=== PATIENT | male | born 1985 | race Caucasian/White ===

== ENCOUNTER 2017-10-13 12:50 | Emergency (ER) | payer OTHER ==
[2017-10-13 13:30] VITALS: BP 136/75
--- NOTE | 2017-10-13 14:28 | UC ---
HPI Febrile Illness - HPI Summary HPI Summary: 32 YO complaints of headache and fever for 10 days. Headache is mild tenderness mostly on the top of the head. No neck pain no neck stiffness. No back pain. No sinusitis symptoms. No cough or chest congestion. No diarrhea no dysuria. Patient had a tick bites in the past. No rashes. - History of Current Complaint Chief Complaint: UCGeneralIllness Time Seen by Provider: 10/13/17 14:08 Hx Obtained From: Patient Onset/Duration: Started Weeks Ago Timing: Constant Initial Severity: Moderate Current Severity: Mild Pain Intensity: 2 Alleviating Factors: OTC Medicine Associated Signs and Symptoms: Myalgia, Night Sweats Related History: Recent Tick Bite - Allergy/Home Medications Allergies/Adverse Reactions: Allergies Allergy/AdvReac Type Severity Reaction Status Date / Time No Known Allergies Allergy Verified 10/13/17 13:25 Home Medications: Home Medications Acetaminophen [Acetaminophen Extra Strength] 1,000 mg PO Q8H PRN 10/13/17 [ History Confirmed 10/13/17] PMH/Surg Hx/FS Hx/Imm Hx Previously Healthy: Yes Other Cardiovascular History: no htn Other Respiratory History: no asthma - Surgical History Surgical History: None - Family History Known Family History: Positive: Cardiac Disease Family History: hx lacerations - Social History Occupation: Employed Full-time Alcohol Use: None Substance Use Type: None Smoking Status (MU): Former Smoker Length of Time of Smoking/Using Tobacco: Smokeless Tobacco for 6 Years When Did the Patient Quit Smoking/Using Tobacco: ~2011 Review of Systems Constitutional: Fever, Chills Skin: Negative Eyes: Negative ENT: Negative Respiratory: Negative Cardiovascular: Negative Gastrointestinal: Negative Genitourinary: Negative Motor: Negative Neurovascular: Negative Musculoskeletal: Myalgia Neurological: Headache Psychological: Negative Is Patient Immunocompromised?: No All Other Systems Reviewed And Are Negative: Yes Physical Exam Triage Information Reviewed: Yes Appearance: Ill-Appearing - midly Vital Signs: Initial Vital Signs Temp 99.4 F 10/13/17 13:22 Pulse 98 10/13/17 13:22 Resp 16 10/13/17 13:22 BP 136/75 10/13/17 13:22 Pulse Ox 99 10/13/17 13:22 Vital Signs Reviewed: Yes Eye Exam: Normal ENT: Positive: Pharynx normal, TMs normal. Negative: Pharyngeal erythema, Nasal congestion, Nasal drainage, Tonsillar swelling, Sinus tenderness Dental Exam: Normal Neck: Positive: Supple, Nontender. Negative: Nuchal Rigidity Respiratory Exam: Normal Respiratory: Positive: Lungs clear, Normal breath sounds, No respiratory distress Cardiovascular: Positive: RRR Abdomen Description: Positive: Nontender, Soft Bowel Sounds: Positive: Present Musculoskeletal Exam: Normal Neurological Exam: Normal Psychological Exam: Normal Skin Exam: Normal Course/Dx - Course Course Of Treatment: NO NECK STIFFNESS. YOUNG 04/08. NO MENINGITIS CLINICALLY AT THIS TIME. DISCUSSED GOING TO THE EMERGENCY DEPARTMENT FOR ANY WORSENING OF HIS CONDITION. WILL TREAT FOR LYME; LABS PENDING. - Diagnoses Clinic Provider Diagnoses: FEVER. HEADACHE. TICK BITE Discharge - Discharge Plan Condition: Stable Disposition: HOME Patient Education Materials: Fever in Adults (ED), Acute Headache (ED), Tick Bite (ED) Referrals: Armando Garcia MD [Primary Care Provider] - - Billing Disposition and Condition Condition: STABLE Disposition: Home
[2017-10-13 18:37] LABS: ABS Basophils 0.1 10^3/ul (0-0.2); ABS Eosinophils 0 10^3/ul (0-0.6); ABS Monocytes 0.5 10^3/ul (0-0.8); ABS Neutrophils 4.2 10^3/ul (1.5-7.7); ABS Nucleated RBC 0 10^3/ul; Eosinophil % 0.3 % (0-6); Hematocrit 44 % (42-52); Hemoglobin 15.2 g/dl (14.0-18.0); Lymphocyte % 29.6 % (25-47); Mean Corpuscular HGB Conc 34 g/dl (31-36); Mean Corpuscular Hemoglobin 30 pg (27-31); Mean Corpuscular Volume 88 fL (80-94); Mean Platelet Volume 7.7 um3 (7.4-10.4); Nucleated Red Blood Cells % 0; Platelet Count 305 10^3/ul (150-450); Red Blood Count 5.04 10^6/ul (4.00-5.40); Red Cell Distribution Width 13 % (10.5-15); White Blood Count 6.8 10^3/ul (3.5-10.8)
[2017-10-13 18:52] LABS: EGFR Non-African American 85.1 (>60)
== END 2017-10-13 14:43 | disposition home or self-care (01) ==
LOC: UCCORT 12:50
DX: R50.9 Fever, unspecified (principal); R51 Headache; Z87.891 Personal history of nicotine dependence; Z87.898 Personal history of other specified conditions
CPT/HCPCS: 36415; 80053; 85025; 86618; 99202; G0463